=== PATIENT | female | born 1990 | race Caucasian/White ===

== ENCOUNTER 2018-11-26 06:00 | Day surgery (SDC) | payer OTHER ==
[~2018-11-26] VITALS: Ht 175.3 cm; Wt 88.5 kg
[2018-11-26] MEDS ORDERED: SUCCINYLCHOLINE CHLORIDE 20 MG/ML(QUELICIN) IVP ONE (07:00)
[2018-11-26] MEDS ORDERED: SILVER NITRATE APPLICATOR 1 STICK STICK..EA. TP ONE (07:00)
[2018-11-26] MEDS ORDERED: PROPOFOL 200MG/ 20ML VIAL (DIPRIVAN) IV ONE (07:00)
[2018-11-26] MEDS ORDERED: MIDAZOLAM HCL 5 MG/5 ML VIAL IVP ONE (07:00)
[2018-11-26] MEDS ORDERED: LR 1,000 ML IV.SOLN IV ONE (07:00)
[2018-11-26] MEDS ORDERED: fentaNYL CITRATE 250 MCG/5 ML AMP IV ONE (07:00)
[2018-11-26] MEDS ORDERED: ONDANSETRON HCL 4 MG/2 ML VIAL IVP ONE (07:00)
[2018-11-26] MEDS ORDERED: SEVOFLURANE 15 MIN GAS INH ONE (07:00)
[2018-11-26] MEDS ORDERED: ROCURONIUM BROMIDE 10 MG/ML (ZEMURON) IV ONE (07:00)
[2018-11-26] MEDS ORDERED: DEXAMETHASONE SOD PHOSPHATE 4 MG/ML VIAL IVP ONE (07:00)
[2018-11-26] MEDS ORDERED: KETOROLAC TROMETHAMINE 30 MG VIAL IVP ONE (07:00)
[2018-11-26] MEDS ORDERED: BUPIVACAINE /PF 0.25% 30 ML VIAL INJ ONE (07:00)
[2018-11-26] MEDS ORDERED: NS IRRIG SOLN 1000 ML IR ONE (07:00)
[2018-11-26] MEDS ORDERED: LR 1,000 ML IV SCH (08:24)
[2018-11-26] MEDS ORDERED: HYDROmorphone 1 MG INJ. 1 MG/ML AMPUL IVP PRN (08:30)
[2018-11-26] MEDS ORDERED: PROMETHAZINE INJ.Non-Formulary 25 MG/ML AMP IM PRN ×2 (08:30)
[2018-11-26] MEDS ORDERED: MEPERIDINE HCL/PF 25 MG/ML DISP.SYRIN IVP PRN (08:30)
[2018-11-26] MEDS ORDERED: ONDANSETRON HCL 4 MG/2 ML VIAL IVP PRN (08:30)
[2018-11-26] MEDS ORDERED: HYDROmorphone 2 MG/ML VIAL IVP PRN ×2 (08:30)
[2018-11-26 09:31] VITALS: BP_SYST 108
== END 2018-11-26 10:30 | disposition home or self-care (01) ==
LOC: SDS 06:00 → SMU 06:00 → SDS 10:30
PROVIDERS: ATTEND Obstetrics & Gynecology
DX: N80.0 Endometriosis of uterus (principal); R10.2 Pelvic and perineal pain; Z98.890 Other specified postprocedural states; G47.00 Insomnia, unspecified; G47.33 Obstructive sleep apnea (adult) (pediatric); Z79.899 Other long term (current) drug therapy; E66.3 Overweight; F17.200 Nicotine dependence, unspecified, uncomplicated
CPT/HCPCS: 36415; 49320; 86886; 86900; 86901; C1727; J7120; J0330; J1100; J1885; J2250; J2405; J2704; J3010; J3490